=== PATIENT | female | born 1960 | race Two or more races ===

== ENCOUNTER 2023-04-22 18:32 | Emergency (ER) | payer MEDICAID, OTHER ==
[~2023-04-22] VITALS: Ht 162.6 cm; Wt 65.8 kg
[~2023-04-22 18:32] MED LIST: ARIP5TAB10 PO; ASPI-605 PO; ATOR10TA PO; BUPR100T4 PO; CALC1TAB38 PO; DULO60CA45 PO; LORA1TAB PO; METO50TA7 PO; MULT1TAB PO; TRAM50TA2 PO
[2023-04-22 18:53] VITALS: TEMP 98.9
[2023-04-22 19:25] LABS: SITE, VBG Other; VBG BASE EXCESS -4.9 mmol/L (-3-3); VBG COHb 0.3 %; VBG MetHb 0.4 %; VBG O2Hb 75.2 %; VBG OXYGEN SATURATION 75.7 %; VBG PCO2 28.4 mmHg (40-52); VBG PH 7.429 (7.31-7.41); VBG PO2 40.5 mmHg (30-50); VBG TOTAL HEMOGLOBIN 10.7 G/dL (12.0-16.0); VENT MODE, VBG Venous 3l n/c
[2023-04-22 19:29] LABS: BASOPHILS # (AUTO) 0.1 K/uL (0.0-0.2); BASOPHILS % (AUTO) 0.9 % (0.0-2.0); HEMATOCRIT 28 % (33-45); HEMOGLOBIN 9.4 g/dL (11.5-14.8); LYMPHOCYTES # (AUTO) 1.2 K/uL (0.8-4.8); LYMPHOCYTES % (AUTO) 7.8 % (20.0-44.0); MEAN CORPUSCULAR HEMOGLOBIN 36 PG (26.0-33.0); MEAN CORPUSCULAR HGB CONC 34 g/dl (31.0-36.0); MEAN CORPUSCULAR VOLUME 107 fL (82-100); MONOCYTES # (AUTO) 1.9 K/uL (0.1-1.30); NEUTROPHILS # (AUTO) 12.3 K/uL (1.8-8.9); NEUTROPHILS % (AUTO) 79.3 % (43.0-81.0); PLATELET COUNT (AUTO) 202 K/uL (150-450); RED BLOOD CELL COUNT(AUTO) 2.63 MIL/uL (4.0-5.2); RED CELL DISTRIBUTION WIDTH 15.1 % (11.5-15.0); WHITE BLOOD COUNT (AUTO) 15.5 K/uL (4.3-11.0)
[2023-04-22 19:43] LABS: CALCIUM, SERUM 8.6 mg/dL (8.5-10.1); CARBON DIOXIDE 21 mmol/L (21-32); CHLORIDE 98 mmol/L (98-107); CREATININE 1.3 mg/dL (0.6-1.3); GLUCOSE 113 mg/dL (74-106); POTASSIUM 3.4 mmol/L (3.5-5.1); SODIUM SERUM 130 mmol/L (136-145); UREA NITROGEN, BLOOD 16 mg/dL (7-18)
[2023-04-22 19:55] LABS: NT-PRO BNP 20087 pg/mL (0-125)
[2023-04-22 22:20] LABS: ANISOCYTOSIS 1+; LYMPHOCYTES % (MANUAL) 9 % (16-48); MONOCYTES % (MANUAL) 8 % (0-11.0); NEUTROPHILS % (MANUAL) 83 (42-76); PLATELET ESTIMATE ADEQUATE
[2023-04-23] MEDS ORDERED: POTASSIUM CHLORIDE 20 MEQ TAB.PRT.SR PO ONE (00:50)
[2023-04-23] MEDS ORDERED: FUROSEMIDE 40 MG/4 ML VIAL ONE (00:50)
[2023-04-23] MEDS: POTASSIUM CHLORIDE 20 MEQ TAB.PRT.SR PO ONE (00:59)
[2023-04-23] MEDS: FUROSEMIDE 40 MG/4 ML VIAL IV ONE (00:59)
[2023-04-23 01:00] VITALS: BP 107/92; O2SAT 98
== END 2023-04-23 01:47 | disposition short-term general hospital (02) ==
LOC: ER 18:38
DX: R09.02 Hypoxemia (principal); E87.70 Fluid overload, unspecified; E87.6 Hypokalemia; J81.1 Chronic pulmonary edema; I10 Essential (primary) hypertension; F31.9 Bipolar disorder, unspecified; Z79.82 Long term (current) use of aspirin; Z79.899 Other long term (current) drug therapy
CPT/HCPCS: 99285; 71045; 93005; 82803 ×2; 85025; 80048; 36415; 84484; 83880; 96374; 85007; J1940

== ENCOUNTER 2025-01-28 19:41 | Emergency (ER) | payer OTHER ==
[~2025-01-28] VITALS: Ht 167.6 cm; Wt 68.0 kg
[2025-01-28 20:28] LABS: PLATELET COUNT (AUTO) 211 K/uL (150-450); RED BLOOD CELL COUNT(AUTO) 4.04 MIL/uL (4.0-5.2); RED CELL DISTRIBUTION WIDTH 15.4 % (11.5-15.0); WHITE BLOOD COUNT (AUTO) 11.2 K/uL (4.3-11.0)
[2025-01-28 20:37] LABS: CALCIUM, SERUM 8.3 mg/dL (8.5-10.1); CREATININE 1.1 mg/dL (0.6-1.3); SODIUM SERUM 137 mmol/L (136-145); UREA NITROGEN, BLOOD 24 mg/dL (7-18)
[2025-01-28 20:40] LABS: APPEARANCE,URINE CLEAR (CLEAR); BLOOD, URINE TRACE-INTA Ery/uL (NEGATIVE); LEUKOCYTE ESTERASE ,URINE NEGATIVE (NEGATIVE); NITRITE, URINE NEGATIVE (NEGATIVE); UGLUCOSE NEGATIVE (NEGATIVE)
[2025-01-28 20:44] LABS: AMPHETAMINE, URINE NEGATIVE (NEGATIVE); BENZODIAZEPINE, URINE NEGATIVE (NEGATIVE); COCCAINE, URINE NEGATIVE (NEGATIVE)
[2025-01-28 20:45] LABS: BARBITURATE, URINE POSITIVE (NEGATIVE); CANNABINOID, URINE POSITIVE (NEGATIVE); OPIATE, URINE POSITIVE (NEGATIVE)
[2025-01-28 20:46] LABS: ALCOHOL, BLOOD < 3 mg/dL (0-10); ASPARTATE AMINOTRANSFERASE 29 U/L (15-37); TOTAL PROTEIN, SERUM 7.8 g/dL (6.4-8.2)
[2025-01-28 20:55] LABS: ADD URINE CULTURE NO; SQUAMOUS EPITHELIAL CELL,UR Few /HPF (None Seen)
[2025-01-29 03:34] VITALS: BP 124/64; TEMP 98.4; O2SAT 98
== END 2025-01-29 04:00 | disposition home or self-care (01) ==
LOC: ER 19:49
DX: T43.211A Poisoning by selective serotonin and norepinephrine reuptake inhibitors, accidental (unintentional), initial encounter (principal); G20.A1 Parkinson's disease without dyskinesia, without mention of fluctuations; F31.9 Bipolar disorder, unspecified; E78.5 Hyperlipidemia, unspecified; I10 Essential (primary) hypertension; Z79.82 Long term (current) use of aspirin; Z79.899 Other long term (current) drug therapy; Y92.89 Other specified places as the place of occurrence of the external cause
CPT/HCPCS: 36415; 80048-TC; 80076-TC; 81001; 83735-TC; 85025-TC; G0480